=== PATIENT | female | born 1960 | race Caucasian/White ===

== ENCOUNTER 2017-11-13 07:13 | Observation (INO) | payer OTHER ==
--- NOTE | 2017-11-13 07:12 | PDHPUP ---
History & Physical Update H&P update statement: This history and physical update is based on an assessment of the patient which was completed after admission or registration (within 24 hours), but prior to the surgery/procedure. H&P update: H&P reviewed & patient examined, no change in patient's condition since H&P completed
[2017-11-13] MEDS ORDERED: TRANEXAMIC ACID 3,000 MG/50 ML BAG IRR ONE (07:23)
[2017-11-13] MEDS ORDERED: DEXAMETHASONE 4 MG/ML VIAL IVP ONE (07:42)
[2017-11-13] MEDS ORDERED: ACETAMINOPHEN 325 MG TAB PO ONE (07:42)
[2017-11-13] MEDS ORDERED: LR 1,000 ML IV ONE (07:42)
[2017-11-13] MEDS ORDERED: FAMOTIDINE 20 MG TAB PO ONE (07:42)
[2017-11-13] MEDS ORDERED: VANCOMYCIN HCL/NORMAL SALINE 250 ML IV ONE (07:45)
[2017-11-13] MEDS ORDERED: PROPOFOL/EMULSION 500 MG/50 ML BOTTLE IV ONE (07:48)
[2017-11-13] MEDS ORDERED: ROPIVACAINE HCL 150 MG/30 ML INJ ONE (07:56)
[2017-11-13] MEDS ORDERED: ROPIVACAINE 0.2% 80 MG, EPINEPHrine 0.2 MG, KETOROLAC TROMETHAMINE 30 MG in SYRINGE 0 ML IU ONE (08:00)
[2017-11-13] MEDS ORDERED: TRANEXAMIC ACID 3,000 MG in NS (SYRINGE) 50 ML IRR ONE (08:00)
[2017-11-13] MEDS ORDERED: VANCOMYCIN PHARMACY TO DOSE MISC ONE (08:00)
[2017-11-13] MEDS ORDERED: MIDAZOLAM 2 MG/2 ML VIAL ONE (09:08)
[2017-11-13] MEDS ORDERED: MIDAZOLAM 2 MG/2 ML VIAL IVP ONE (09:09)
--- NOTE | 2017-11-13 09:10 | PDANEPAE ---
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 hx of erysipelas, 2015 - treated w/IV & PO abx - Chronic Pain History Chronic Pain: No - Surgical History Prior Surgeries: wisdom tooth removal. meniscal tear. colonoscopy ANE Review of Systems Review of Systems: - Exercise capacity METS (RN): 5 METS ANE Patient History - Allergies Allergies/Adverse Reactions: cephalexin [From Keflex] Allergy (Verified 10/30/17 09:43) Dyspnea/Hives Penicillins Allergy (Verified 10/30/17 09:43) Dyspnea/Hives Sulfa (Sulfonamide Antibiotics) Allergy (Verified 10/30/17 09:43) Dyspnea/Hives - Home Medications Home medications: home medication list seen and reviewed Home Medications: Acetaminophen/ASA/Caffeine [Excedrin Tablet (*)] 1 each PO DAILY PRN 10/30/17 [ Last Taken 11/06/17] Calcium Carbonate [Oyster Shell Calcium 500 mg (*)] 500 mg PO DAILY 10/30/17 [ Last Taken 10/30/17] Ibuprofen [Motrin (*)] 400 mg PO Q6HRS PRN 10/30/17 [Last Taken 11/06/17] Levothyroxine [Synthroid 25 mcg (*)] 25 mcg PO DAILY06 10/30/17 [Last Taken 07/26 06:00] Multivitamins [Multivitamin (*)] 1 each PO DAILY 10/30/17 [Last Taken 10/30/17] - NPO status NPO Status: no food or drink >8 hours NPO Since - Liquids (Date): 11/13/17 NPO Since - Liquids (Time): 06:00 NPO Since - Solids (Date): 11/12/17 NPO Since - Solids (Time): 23:00 - Smoking Hx Smoking Status: Never smoked - Family Anes Hx Family Hx Anesthesia Complications: none ANE Labs/Vital Signs - Vital Signs Blood Pressure: 89/74 Heart Rate: 80 Respiratory Rate: 14 O2 Sat (%): 96 Height: 154.94 cm Weight: 70.307 kg ANE Physical Exam - Airway Neck exam: FROM, decreased ROM Mallampati Score: Class 2 Mouth exam: small mouth opening - Pulmonary Pulmonary: no respiratory distress - Cardiovascular Cardiovascular: regular rate and rhythym - ASA Status ASA Status: II ANE Anesthesia Plan Anesthesia Plan: spinal (SAB vs GA, RBA discussed) Regional Anesthesia: single shot NB
[2017-11-13] MEDS ORDERED: HYDROmorphONE/DILAUDID 1 MG/ML INJ IVP PRN (10:22)
[2017-11-13] MEDS ORDERED: oxyCODONE IR 5 MG TAB PO PRN (10:22)
[2017-11-13] MEDS ORDERED: ONDANSETRON 4 MG/2 ML VIAL IVP PRN ×2 (10:22→10:38)
[2017-11-13] MEDS ORDERED: LR 500 ML IV PRN (10:22)
[2017-11-13] MEDS ORDERED: NALOXONE HCL 0.4 MG/ML INJ IVP PRN (10:22)
[2017-11-13] MEDS ORDERED: HYDROCODONE/APAP 5/325 TAB PO PRN (10:22)
[2017-11-13] MEDS ORDERED: fentaNYL 100 MCG/2 ML INJ IVP PRN (10:22)
[2017-11-13] MEDS ORDERED: PROMETHAZINE HCL 25 MG SUPPR PR PRN (10:38)
[2017-11-13] MEDS ORDERED: diphenhydrAMINE 25 MG CAP PO PRN (10:38)
[2017-11-13] MEDS ORDERED: POLYETHYLENE GLYCOL 3350 17 GM PKT PO PRN (10:38)
[2017-11-13] MEDS ORDERED: METOCLOPRAMIDE 10 MG/2 ML VIAL IVP PRN (10:38)
[2017-11-13] MEDS ORDERED: ONDANSETRON DISINTEGRATING 4 MG TAB PO PRN (10:38)
[2017-11-13] MEDS ORDERED: MAGNESIUM HYDROXIDE 30 ML UDCUP PO PRN (10:38)
[2017-11-13] MEDS ORDERED: CYCLOBENZAPRINE 10 MG TAB PO PRN (10:38)
[2017-11-13] MEDS ORDERED: TEMAZEPAM 15 MG CAP PO PRN (10:38)
[2017-11-13] MEDS ORDERED: DIPHENOXYLATE/ATROPINE LOMOTIL 1 TAB PO PRN (10:38)
[2017-11-13] MEDS ORDERED: PROMETHAZINE HCL 25 MG/ML INJ IVP PRN (10:38)
[2017-11-13] MEDS ORDERED: BISACODYL 10 MG SUPP PR PRN (10:38)
[2017-11-13] MEDS ORDERED: LACTULOSE 20 GM/30 ML UDCUP PO PRN (10:38)
--- NOTE | 2017-11-13 10:38 | POSTOPPROG ---
Post Op Note Date of Operation: 11/13/17 Surgeon: Loreto Vazquez Heavy Lift Rigger: dwaine vazquez Anesthesiologist: dr. mercer Anesthesia: Spinal, Other (Specify) (adductor canal block) Pre-op Diagnosis: left knee OA Post-op Diagnosis: same Indication: L knee pain Procedure: L TKA robot assisted Findings: severe knee OA Inf/Abcess present in the surg proc area at time of surgery?: No EBL: 50-100
--- NOTE | 2017-11-13 10:57 | POSTANESTH ---
Post Anesthetic Evaluation Cardiovascular Status: Similar to Pre-Op Cond Respiratory Status: Similar to Pre-op Cond. Level of Consciousness/Mental Status: Alert and Oriented Pain Control: Adequate, Prn Tx Ordered Nausea/Vomiting Control: Adequate, Prn Tx Ordered Complications Possibly Related to Anesthesia: None Noted
[2017-11-13] MEDS ORDERED: LR 1,000 ML IV SCH (11:00)
[2017-11-13] MEDS: ACETAMINOPHEN 325 MG TAB PO SCH ×2 (13:17→18:14)
[2017-11-13] MEDS: oxyCODONE IR 5 MG TAB PO PRN ×2 (18:14→20:46)
[2017-11-13] MEDS ORDERED: VANCOMYCIN 750 MG in D5W 150 ML IV ONE (20:30)
[2017-11-13] MEDS: ASPIRIN 81 MG CHEWABLE TAB PO SCH (20:35)
[2017-11-13] MEDS: FAMOTIDINE 20 MG TAB PO SCH (20:36)
[2017-11-13] MEDS: SENNOSIDES/DOCUSATE SODIUM TAB PO SCH (20:37)
[2017-11-14] MEDS: ACETAMINOPHEN 325 MG TAB PO SCH ×2 (00:04→05:39)
[2017-11-14] MEDS: oxyCODONE IR 5 MG TAB PO PRN ×3 (00:05→08:32)
[2017-11-14] MEDS: LEVOTHYROXINE 25 MCG TAB PO SCH ×2 (05:40→05:42)
[2017-11-14 07:36] VITALS: BP 97/65
[2017-11-14] MEDS: SENNOSIDES/DOCUSATE SODIUM TAB PO SCH (08:04)
[2017-11-14] MEDS: ASPIRIN 81 MG CHEWABLE TAB PO SCH (08:04)
[2017-11-14] MEDS: FAMOTIDINE 20 MG TAB PO SCH (08:04)
--- NOTE | 2017-11-14 10:54 | ASMTLACE ---
LACE Length of stay for Answers: 2 days current admission Acuity / Level of Answers: No Care: Did the patient have an inpatient admission? Comorbidities - select Answers: Other Notes: Hypothyroid all that apply # of Emergency department Answers: 0 visits in the last 6 months Score: 3 Date Signed: 11/14/2017 10:53 AM Electronically Signed By:RICH Petersen
--- NOTE | 2017-11-14 16:01 | GDS ---
ADMISSION DIAGNOSIS: Left knee osteoarthritis. DISCHARGE DIAGNOSIS: Left knee osteoarthritis. PROCEDURE: Left total knee arthroplasty, robotic assisted. VTE PROPHYLAXIS: Recommend aspirin 81 mg twice daily for 4 weeks. BRIEF DESCRIPTION OF HOSPITAL STAY: Patient was admitted for an elective joint arthroplasty. The pa mony tolerated the procedure well and has passed physical therapy. The patient was given appropriat e antibiotic prophylaxis and venous thromboembolism prophylaxis. The patient's pain was well control led on oral pain medication, patient was holding down food, and had urinated. Decision was made to d ischarge the patient. The patient was given post-operative prescriptions pre-operatively. PLAN: Follow up as scheduled with Dr. Salter's office, 12/05, at 9:30 a.m. /[id number]/MODL
--- NOTE | 2017-11-14 20:15 | SOAPPROG ---
SOAP Progress Note Assessment/Plan: Assessment: Patient is doing well s/p TKA pain is well controlled VTE ppx: recommend ASA 81 mg BID Anemia: level expected initially postop D/c planning: d/c to home today Plan: 11/14/17 20:15 Subjective: pain is well controlled, denies SOB, chest pain and N/V. Objective: Vital Signs Temp Pulse Resp BP Pulse Ox 36.5 C 54 L 12 97/65 L 96 11/14/17 07:35 11/14/17 07:35 11/14/17 07:35 11/14/17 07:35 11/14/17 07:35 Laboratory Results 11/14/17 04:33 11/13/17 13:20 11/13/17 11/14/17 11/15/17 05:59 05:59 05:59 Intake Total 1650 Output Total 1360 Balance 290 incision dressing is clean and dry, NVI, +pf/df ICD10 Worksheet Patient Problems: Problems Problem Status Onset C. difficile diarrhea Acute 08/18/15 Primary localized osteoarthritis of left knee Acute
--- NOTE | 2017-11-15 15:28 | GOP ---
DATE OF OPERATION: 11/13/2017 SURGEON: Mary Salter MD APPRENTICE PLUMBER: Gabriela Salter, MARIANA ANESTHESIA: Spinal. PREOPERATIVE DIAGNOSIS: Left knee osteoarthritis. POSTOPERATIVE DIAGNOSIS: Left knee osteoarthritis. PROCEDURE PERFORMED: Left total knee replacement with computer navigation, robotic assist. FINDINGS: Severe medial patellofemoral osteoarthritis. ESTIMATED BLOOD LOSS: 30 cc. INDICATIONS: The patient is a 57-year-old female with severe and progressive pain and deformity of t he left knee unresponsive to conservative care. The risks and benefits of surgical intervention were explained in detail. DESCRIPTION OF PROCEDURE: The patient was brought to the operative room and placed on the table in t he supine position. Spinal anesthesia was induced without difficulty. A pneumatic tourniquet was appl ied about the left proximal thigh, and the leg was prepped and draped in a sterile fashion. The leg h older was applied. After exsanguination by elevation the tourniquet was inflated to 250 mmHg. Incision was made anterior medial from the tibial tuberosity to a point 2 cm proximal to the superior pole of the patella. Medial parapatellar arthrotomy was carried out from the superior pole of the pa tella and posteriorly in line with the fibers of the Type II VMO. The medial collateral ligament was elevated and the infrapatellar fat pad was resected. The patella was everted and the articular surface was excised. A 32 mm patellar button was placed. Attention was turned first to the distal aspect of the femur. After exposure of the femur, 2 half pi ns were placed for fixation of the femoral array. In a similar fashion, 2 pins were placed anteromed ial on the tibia for fixation of the tibial array. External land marking and registration of the hip center was performed without difficulty. Internal femoral and tibial registration was carried out w ithout difficulty and the femoral and tibial checkpoints were placed and verified for accuracy. Attention was turned to the femur. The foot print for the size 2 femoral component was cut with the saw using the [employer] robotic system and verified for accuracy against the CT based plan. In a similar f ashion, the saw was used to cut the footprint for the size 3 tibial component using the [employer] system an d verified for accuracy against the CT based plan. The tibial articular surface was excised without d ifficulty, followed by the intercondylar box cut. The knee was extended and the remnants of the medial and lateral meniscus were excised. The posterior capsule was injected with ropivacaine, epinephrine and Toradol. A size 3 tibial tray was positioned . Trial reduction was then carried out. There was excellent range of motion, alignment, and stability using the 3 x 9 mm polyethylene. All trials were then removed. The joint was thoroughly irrigated and carefully dried. The Press Fit c omponents were implanted. The permanent 9 mm polyethylene was placed without difficulty. The tourniquet was deflated and all bleeders were coagulated. The wound was thoroughly irrigated and closed using interrupted sutures of 2-0 Vicryl for the joint capsule. The subcu was closed with 3-0 V icryl and the skin with 4-0 Monocryl. Dermabond and Steri-Strips were applied followed by a compress sandy dressing. The patient was then moved from the operating room to the recovery room in good conditi on, having tolerated the procedure well. /[id number]/MODL
== END 2017-11-14 10:47 | disposition home or self-care (01) ==
LOC: F3N 07:13
PROVIDERS: ADMIT Orthopaedic Surgery; ATTEND Orthopaedic Surgery
PROC: 8E0Y0CZ Robotic Assisted Procedure of Lower Extremity, Open Approach (ICD-10-PCS; principal; 2017-11-13 09:00)
PROC: 0SRD0JZ Replacement of Left Knee Joint with Synthetic Substitute, Open Approach (ICD-10-PCS; principal; 2017-11-13 09:00)
PROC: 8E0YXBG Computer Assisted Procedure of Lower Extremity, With Computerized Tomography (ICD-10-PCS; principal; 2017-11-13 09:00)
DX: M17.12 Unilateral primary osteoarthritis, left knee (principal)
CPT/HCPCS: 27447; 73560; 97110; 97116; 97161; G0378; J0171; J1100; J1885; J2250; J2704; J2795; J3370